=== PATIENT | female | born 2000 | race Caucasian/White ===

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

== ENCOUNTER 2022-11-09 03:03 | Inpatient (IN) | payer BC, OTHER ==
[2022-11-09] MEDS ORDERED: NICOTINE 21MG/24HR PATCH TRANSDERM STA (03:26)
[2022-11-09] MEDS ORDERED: LIDOCAINE 1% INJ 10MG/ML (20 ML MDV) SQ ONE (03:33)
[2022-11-09] MEDS ORDERED: TOPICAL SKIN ADHESIVE 1 EACH AMP TOPICAL ONE (04:08)
--- NOTE | 2022-11-09 04:12 | ED ---
General Adult HPI - General Source: EMS Mode of arrival: EMS <DarrenregCristel chiang - Last Filed: 11/10/22 01:29> - General Source: patient, RN notes reviewed, old records reviewed <Sachin Narvaez - Last Filed: 11/10/22 02:11> - General Chief complaint: Psychiatric Symptoms Stated complaint: Suicidal Time Seen by Provider: 11/09/22 03:14 - History of Present Illness Initial comments: Patient is a 22-year-old female presents with department for psychiatric evaluation. Performed self harm, cutting her arms, as well as her leg with a razor blade. This occurred shortly prior to arrival. Is up-to-date on tetanus. Endorses suicidal ideations. She states that she did this "to be taken seriously." Seems like she wants to be admitted. Denies any homicidal ideations, Tums complaints. Denies any visual or auditory hallucinations. His no other acute complaints at this time. (Sachin Narvaez) - Related Data Home Medications Medication Instructions Recorded Confirmed Unable To Assess [Unable to Assess] 05/22/17 05/22/17 Allergies Allergy/AdvReac Type Severity Reaction Status Date / Time No Known Allergies Allergy Verified 11/09/22 09:19 Review of Systems ROS Other: All systems not noted in ROS Statement are negative. <TuckerCristel - Last Filed: 11/10/22 01:29> ROS Other: All systems not noted in ROS Statement are negative. <Sachin Narvaez - Last Filed: 11/10/22 02:11> ROS Statement: Those systems with pertinent positive or pertinent negative responses have been documented in the HPI. Review of Systems: CONST: Denies fever EYES: Denies blurry vision ENT: Denies nasal congestion C/V: Denies Chest pain RESP: Denies shortness of breath GI: Denies abdominal pain : Denies dysuria SKIN: Endorses skin lacerations MSK: Denies joint pain. NEURO: Denies headache PSYCH: Denies homicidal ideations/plans/attempts. Denies visual or auditory hallucinations. He endorses suicidal ideation, attempt by cutting herself. (Sachin Narvaez) Past Medical History Past Medical History: No Reported History History of Any Multi-Drug Resistant Organisms: None Reported Past Surgical History: No Surgical Hx Reported Past Psychological History: Anxiety, Depression Past Alcohol Use History: None Reported Past Drug Use History: None Reported <Cristel Ceballos - Last Filed: 11/10/22 01:29> General Exam <Sachin Narvaez - Last Filed: 11/10/22 02:11> - General Exam Comments Initial Comments: General: Appears in no acute distress. HEAD: Normal with no signs of head trauma. EYES: PERRLA, EOMI, conjunctiva normal, no discharge. ENT: Hearing grossly intact, normal oropharynx. RESPIRATORY: Clear breath sounds bilaterally. No wheezes, rales, or rhonchi. C/V: Regular rate and rhythm. S1 and S2 auscultated, peripheral pulses 2+ and intact throughout ABD: Abd is soft, nontender, nondistended EXT: Normal range of motion, no obvious deformity SKIN: Patient has multiple skin lacerations located over the bilateral arms as well as leg. Self-inflicted. Fresh. Some will require stitches, as well as skin glue. Bleeding is controlled. NEURO: Alert and oriented 4. (Sachin Narvaez) Course Vital Signs 11/09/22 11/09/22 07:47 08:22 Temperature 97.9 F 97.3 F L Pulse Rate 100 Pulse Rate [ 82 Right Sitting] Respiratory 18 20 Rate Blood Pressure 119/71 Blood Pressure 150/70 [Left Arm Sitting] O2 Sat by Pulse 96 98 Oximetry Procedures - Laceration Laceration #1 Consent Obtained: verbal consent Indication: laceration Site: other (L forearm) Description: linear, stellate Depth: simple, single layer Anesthetic Used: lidocaine 1% Anesthesia Technique: local infiltration Amount (mls): 10 Pre-repair: wound explored, irrigated extensively Type of Sutures: vicryl Size of Sutures: 5-0 Number of Sutures: 3 Technique: simple, interrupted Complications: pain, bleeding, nerve injury Patient Tolerated Procedure: well, no complications Laceration #2 Indication: laceration Site: other Size (cm): 4 Description: linear Depth: simple, single layer Anesthetic Used: lidocaine 1% Anesthesia Technique: local infiltration, nerve block Amount (mls): 10 Pre-repair: wound explored, irrigated extensively Type of Sutures: vicryl Size of Sutures: 5-0 Number of Sutures: 3 Technique: simple, interrupted Complications: pain, bleeding, nerve injury Patient Tolerated Procedure: well, no complications Laceration #3 Consent Obtained: verbal consent Indication: laceration Site: other (left forearm ) Depth: simple, single layer Anesthetic Used: lidocaine 1% Anesthesia Technique: local infiltration Amount (mls): 10 Pre-repair: wound explored, irrigated extensively Type of Sutures: vicryl Size of Sutures: 5-0 Number of Sutures: 3 Technique: simple, interrupted Complications: pain, bleeding, nerve injury Patient Tolerated Procedure: well, no complications Laceration #4 Consent Obtained: verbal consent Indication: laceration Site: other (right thigh ) Description: linear Depth: simple, single layer Anesthetic Used: lidocaine 1% Anesthesia Technique: local infiltration Amount (mls): 10 Type of Sutures: vicryl Size of Sutures: 5-0 Number of Sutures: 2 Technique: simple, interrupted Complications: pain, bleeding, nerve injury Patient Tolerated Procedure: well, no complications Laceration #5 Consent Obtained: verbal consent Indication: laceration Site: other (left forearm ) Depth: simple, single layer Anesthetic Used: lidocaine 1% Anesthesia Technique: local infiltration Amount (mls): 10 Pre-repair: wound explored Type of Sutures: nylon, vicryl Size of Sutures: 5-0 Number of Sutures: 2 Technique: simple, interrupted Complications: pain, bleeding, nerve injury Patient Tolerated Procedure: well, no complications <Cristel Ceballos - Last Filed: 11/10/22 01:29> - Procedures Initial comment: Multiple superficial lacerations repaired. 13 sutures were placed in total to left forearm and right contreras. (Cristel Ceballos) Medical Decision Making <Sachin Narvaez - Last Filed: 11/10/22 02:11> - Medical Decision Making Was pt. sent in by a medical professional or institution (, PA, BLADDER CHANGER, urgent care, hospital, or skilled nursing...) When possible be specific @ -No Did you speak to anyone other than the patient for history (EMS, parent, family, police, friend...)? What history was obtained from this source @ -No Did you review nursing and triage notes (agree or disagree)? Why? @ -I reviewed and agree with nursing and triage notes Were old charts reviewed (outside hosp., previous admission, EMS record, old EKG, old radiological studies, urgent care reports/EKG's, skilled nursing records)? Report findings @ -No old charts were reviewed Differential Diagnosis (chest pain, altered mental status, abdominal pain women, abdominal pain men, vaginal bleeding, weakness, fever, dyspnea, syncope, headache, dizziness, GI bleed, back pain, seizure, CVA, palpatations, mental health, musculoskeletal)? @ -Differential Mental Health Depression, anxiety, bipolar, psychosis, schizophrenia, borderline personality, situational depression, adjustment disorder, behavioral disorder, brain tumor, malingering, substance abuse, encephalopathy, medication reaction, dementia, hypothyroidism, degenerative neurologic disorder, lupus.... This is not meant to be all-inclusive list EKG interpreted by me (3pts min.). @ -None done X-rays interpreted by me (1pt min.). @ -None done CT interpreted by me (1pt min.). @ -None done U/S interpreted by me (1pt. min.). @ -None done What testing was considered but not performed or refused? (CT, X-rays, U/S, labs)? Why? @ -None What meds were considered but not given or refused? Why? @ -None Did you discuss the management of the patient with other professionals (professionals i.e. , PA, BLADDER CHANGER, lab, RT, psych nurse, social security assessor, burner shaft, teacher, police officer crime prevention, lining caser)? Give summary @ -EPS notified of the consult. Was smoking cessation discussed for >3mins.? @ -No Was critical care preformed (if so, how long)? @ -No Were there social determinants of health that impacted care today? How? (Homelessness, low income, unemployed, alcoholism, drug addiction, t ransportation, low edu. Level, literacy, decrease access to med. care, penitentiary, rehab)? @ -No Was there de-escalation of care discussed even if they declined (Discuss DNR or withdrawal of care, Hospice)? DNR status @ -No What co-morbidities impacted this encounter? (DM, HTN, Smoking, COPD, CAD, Cancer, CVA, ARF, Chemo, Hep., AIDS, mental health diagnosis, sleep apnea, morbid obesity)? @ -None Was patient admitted / discharged? Hospital course, mention meds given and route, prescriptions, significant lab abnormalities, going to OR and other pertinent info. @ -Based on the patient's presentation and physical exam, presents with suicidal ideations, as well as self-harm. Patient is up-to-date on tetanus. She will require wound closure. BAT is 0.067. UDS is pending. Vital signs within acceptable limits. Suicide precautions, sitter ordered. Assisting mid-level provider Cristel attended to the patient's wounds. Patient is medically cleared for evaluation by psychiatry. EPS was notified of the consult. Disposition is been in psychiatric evaluation. EPS evaluated the patient and admitted the patient inpatient psychiatry. Undiagnosed new problem with uncertain prognosis? @ -No Drug Therapy requiring intensive monitoring for toxicity (Heparin, Nitro, Insulin, Cardizem)? @ -No Were any procedures done? @ -No Diagnosis/symptom? @ -Suicidal ideation, encounter for psychiatric evaluation, self-harm, lacerations Acute, or Chronic, or Acute on Chronic? @ -Acute Uncomplicated (without systemic symptoms) or Complicated (systemic symptoms)? @ -Complicated Side effects of treatment? @ -No Exacerbation, Progression, or Severe Exacerbation? @ -No Poses a threat to life or bodily function? How? (Chest pain, USA, MA, pneumonia, PE, COPD, DKA, ARF, appy, cholecystitis, CVA, Diverticulitis, Homicidal, Suicidal, threat to staff... and all critical care pts) @ -yes (Sachin Narvaez) - Lab Data Lab Results 11/09/22 11/09/22 11/09/22 Range/Units 06:32 06:38 06:38 Urine Color Light Red Urine Appearance Turbid H (Clear) Urine pH 5.5 (5.0-8.0) Ur Specific [place] 1.023 (1.001-1.035) Urine Protein Trace H (Negative) Urine Glucose (UA) Negative (Negative) Urine Ketones Negative (Negative) Urine Blood Negative (Negative) Urine Nitrite Negative (Negative) Urine Bilirubin Negative (Negative) Urine Urobilinogen <2.0 (<2.0) mg/dL Ur Leukocyte Esterase Negative (Negative) Urine RBC 9 H (0-5) /hpf Urine Bacteria Rare H (None) /hpf Urine Mucus Moderate H (None) /hpf Urine HCG, Qual (Not Detectd) Urine Opiates Screen Not Detected (NotDetected) Ur Oxycodone Screen Not Detected (NotDetected) Urine Methadone Screen Not Detected (NotDetected) Ur Propoxyphene Screen Not Detected (NotDetected) Ur Barbiturates Screen Not Detected (NotDetected) U Tricyclic Antidepress Not Detected (NotDetected) Ur Phencyclidine Scrn Not Detected (NotDetected) Ur Amphetamines Screen Not Detected (NotDetected) U Methamphetamines Scrn Not Detected (NotDetected) U Benzodiazepines Scrn Not Detected (NotDetected) Urine Cocaine Screen Not Detected (NotDetected) U Marijuana (THC) Screen Not Detected (NotDetected) Coronavirus (PCR) Not Detected (Not Detectd) 11/09/22 Range/Units 06:38 Urine Color Urine Appearance (Clear) Urine pH (5.0-8.0) Ur Specific [place] (1.001-1.035) Urine Protein (Negative) Urine Glucose (UA) (Negative) Urine Ketones (Negative) Urine Blood (Negative) Urine Nitrite (Negative) Urine Bilirubin (Negative) Urine Urobilinogen (<2.0) mg/dL Ur Leukocyte Esterase (Negative) Urine RBC (0-5) /hpf Urine Bacteria (None) /hpf Urine Mucus (None) /hpf Urine HCG, Qual Not Detected (Not Detectd) Urine Opiates Screen (NotDetected) Ur Oxycodone Screen (NotDetected) Urine Methadone Screen (NotDetected) Ur Propoxyphene Screen (NotDetected) Ur Barbiturates Screen (NotDetected) U Tricyclic Antidepress (NotDetected) Ur Phencyclidine Scrn (NotDetected) Ur Amphetamines Screen (NotDetected) U Methamphetamines Scrn (NotDetected) U Benzodiazepines Scrn (NotDetected) Urine Cocaine Screen (NotDetected) U Marijuana (THC) Screen (NotDetected) Coronavirus (PCR) (Not Detectd) Disposition <Cristel Ceballos - Last Filed: 11/10/22 01:29> <Sachin Narvaez - Last Filed: 11/10/22 02:11> Clinical Impression: Suicidal ideation, Self-harm, Encounter for psychiatric assessment, Multiple lacerations Disposition: TRANSFER TO PSYCH HOSP/UNIT Condition: Stable
[2022-11-09] MEDS ORDERED: HALOPERIDOL LACTATE 5 MG/ML 1 ML VIAL IM PRN (05:54)
[2022-11-09] MEDS ORDERED: haloperidoL 5 MG TAB PO PRN (05:54)
[2022-11-09] MEDS ORDERED: ACETAMINOPHEN TAB 325 MG TAB PO PRN (05:54)
[2022-11-09] MEDS ORDERED: MAG HYDROX/AL HYDROX/SIMETH 30 ML CUP PO PRN (05:54)
[2022-11-09] MEDS ORDERED: MAGNESIUM HYDROXIDE 2,400 MG/30 ML CUP PO PRN (05:54)
[2022-11-09] MEDS ORDERED: hydrOXYzine HCL 50 MG/ML 1 ML VIAL IM PRN (05:54)
[2022-11-09] MEDS ORDERED: LORazepam 2 MG/ML INJ IM PRN (05:54)
[2022-11-09] MEDS ORDERED: traZODone HCL 50 MG TAB PO PRN (05:54)
[2022-11-09] MEDS ORDERED: IBUPROFEN 600 MG TAB PO PRN (05:54)
[2022-11-09 07:00] LABS: Amphetamine Screen,Urine Not Detected (NotDetected); Barbiturate Screen,Urine Not Detected (NotDetected); Benzodiazepines Screen,Urine Not Detected (NotDetected); Cocaine Screen,Urine Not Detected (NotDetected); Methadone Screen, Urine Not Detected (NotDetected); Opiate Screen,Urine Not Detected (NotDetected); Oxycodone Screen, Urine Not Detected (NotDetected); Phencyclidine Screen,Urine Not Detected (NotDetected); Tricyclic Antidepressant,Urine Not Detected (NotDetected); Urn Cannabinoid Scrn Not Detected (NotDetected)
[2022-11-09] MEDS ORDERED: hydrOXYzine pamoate 25 MG CAP PO PRN (11:51)
--- NOTE | 2022-11-09 12:06 | P.HP ---
Psychiatric H&P - . H&P Date: 11/09/22 History & Physical: Allergies Allergy/AdvReac Type Severity Reaction Status Date / Time No Known Allergies Allergy Verified 11/09/22 09:19 Vital Signs Temp 97.3 F L 11/09/22 08:22 Pulse 82 11/09/22 08:22 Resp 20 11/09/22 08:22 BP 150/70 11/09/22 08:22 Pulse Ox 98 11/09/22 08:22 FiO2 Intake & Output 11/08/22 11/09/22 11/09/22 18:59 06:59 18:59 Weight 99.79 kg 115.1 kg Laboratory Last Values Urine Opiates Screen Not Detected (NotDetected) 11/09/22 06:38 Ur Oxycodone Screen Not Detected (NotDetected) 11/09/22 06:38 Urine Methadone Screen Not Detected (NotDetected) 11/09/22 06:38 Ur Propoxyphene Screen Not Detected (NotDetected) 11/09/22 06:38 Ur Barbiturates Screen Not Detected (NotDetected) 11/09/22 06:38 U Tricyclic Antidepress Not Detected (NotDetected) 11/09/22 06:38 Ur Phencyclidine Scrn Not Detected (NotDetected) 11/09/22 06:38 Ur Amphetamines Screen Not Detected (NotDetected) 11/09/22 06:38 U Methamphetamines Scrn Not Detected (NotDetected) 11/09/22 06:38 U Benzodiazepines Scrn Not Detected (NotDetected) 11/09/22 06:38 Urine Cocaine Screen Not Detected (NotDetected) 11/09/22 06:38 U Marijuana (THC) Screen Not Detected (NotDetected) 11/09/22 06:38 Coronavirus (PCR) Not Detected (Not Detectd) 11/09/22 06:32 11/09/22 11:53 Patient is a 22-year-old female presents with department for psychiatric evaluation. Performed self harm, cutting her arms, as well as her leg with a razor blade. This occurred shortly prior to arrival. Is up-to-date on tetanus. Endorses suicidal ideations. She states that she did this "to be taken seriously." Seems like she wants to be admitted. Denies any homicidal idea tions. Denies any visual or auditory hallucinations. Has no other acute complaints at this time. History of present illness: The patient has had a struggle with modes for a long period time. She has been diagnosed with borderline personality and agrees with that pattern she was raised by a father who could not be pleased and would cause a criticize her both for her efforts or if she gave up. But never explained what he was looking for. This led to a cyclic pattern of trying new things succeeding briefly and then having all fall apart and then trying new things again. She got into DBT recently and was hopeful but worried that it would simply change her service behaviors and not helped the underlying pain. In addition she lost her transportation and couldn't go anymore. She denies any manic or hypomanic episodes in the past. The closest thing to anything psychotic is that she has in her negative chatter that is her own mind. Such as suggesting that DBT wouldn't help because of a just work on the surface and not deal with underlying problems. This inner voice seems to be logical in her own voice just part of the borderline pattern. She has been tried on serotonin medicines including Effexor Prozac Lexapro and Zoloft none of which helped but did not make her manic either. She was also placed on Seroquel which did help her sleep but also caused it to be hard to lose weight. The thing that has helped the most due to the consistent anxiety and chatter in her head was Ativan but as she points out people are hesitant to use that long-term. the patient has cuts all up and down her arm she says that she's had a boyfriend for about 4 months and thought it was going well he struggles with panic attacks she struggles with up and down. However she felt that she needed a break and wanted to go back and live with her dad for a while. He became filled with panic and decided that she was bad for him so took all of her things and put them out on the porch and told her he didn't want her there anymore. This led to enormous sense of failure which she treated by cutting on herself she tried to quit but would keep going back to cutting on herself and to go the emergency room a couple times and couldn't seem to quit. She felt overwhelmed and decided to just find some way to kill her self but came to the hospital thinking if she could get admitted. She did both quit cutting on herself and find a way forward. She said 2 weeks ago if you talk to her she was happy and hopeful able to concentrate good energy able to enjoy. On mental status exam patient is alert oriented and cooperative. Serious affect. Gait and station are normal self-care is minimal but adequate no signs of any psychotic responses. She is not tearful not aggressive. Cooperative. Concentration was somewhat impaired she can only remember 2 of 3 objects after 3 minutes. She going name the last 3 presidents and 3 of the great [employer]. Interestingly she remembered [place] and superior but couldn't remember [place]. Subtracting 7 from 93 she got 86 and she can spell world backward cats and snakes both have sharp teeth and her animals and she ran out of ideas but she did this because her inner voice said those ideas were stupid so she did not share anymore. To abstract the proverb aggressive screen and outside offense sheath off her bed and said make the best of what you have. Assessment I do not see psychosis I do not see bipolar I do see a significant case of borderline which has led her to be temporarily danger to self or others if she were not in the hospital she would cut on herself feel hopeless and attempts suicide. We need to give her space to calm down get some medicines for dealing with anxiety and help her figure out how to get back into DBT and I think she will do okay. Plan: Since she has done well on Ativan may can take it all the time were going to try 200 4 times a day of gabapentin with when necessary of hydroxyzine and see if that cuts the anxiety enough for her to function.
[2022-11-09] MEDS: GABAPENTIN 100 MG CAP PO SCH ×3 (12:26→20:33)
[2022-11-09] MEDS: NICOTINE 14MG/24HR PATCH TRANSDERM SCH (12:28)
--- NOTE | 2022-11-09 14:07 | P.CONS ---
History of Present Illness - Reason for Consult Consult date: 11/09/22 - History of Present Illness Patient is a 22-year-old female with PMH of PCOS presents to [facility] for mental health concerns. She has been admitted to the mental health unit for further management of his symptoms. [facility] has been consulted for medical management of this patient. Patient reports bleeding from her self inflicted wounds on her right forearm. According to nursing staff, patient is pulling out her stitches which she received in the ED. She has no other complaints today. Pertinent positives and negatives as discussed in HPI, a complete review of systems was performed and all other systems are negative. General: non toxic, no distress, appears at stated age Derm: Multiple lacerations with different stages of healing over BL forearms. R laceration dorsal hand laterally bleeding. Head: atraumatic, normocephalic, symmetric Eyes: EOMI, no lid lag, anicteric sclera Cardiovascular: S1S2 reg, no murmur Lungs: CTA bilateral, no rhonchi, no rales , no accessory muscle use Abdominal: soft, nontender to palpation, no guarding, no appreciable organomegaly Ext: no gross muscle atrophy, no edema, no contractures Neuro: CN II-XI grossly intact, no focal neuro deficits Psych: Alert, oriented, appropriate affect Right forearm laceration PCOS Smoker Alcohol abuse Based on my assessment of this patient, this patient meets a moderate complexity level of care. Patient has a new diagnosis of nausea and vomiting with uncertain prognosis. His symptoms are also concerning for sleep apnea. Right forearm laceration: Local wound care. Steri strips. PCOS: Restart Metformin 500 mg PO QD. Smoker: Patient has been offered a nicotine patch. Alcohol abuse: She denies any withdrawal symptoms. Ativan 1 mg IM Q6H PRN for agitation ordered. I have reviewed the following sfdc consultant notes: Psychiatry note reviewed. I have reviewed the results of the following tests: UDS is negative. COVID-19 negative. I have ordered the following tests: Agree with CBC, CMP, urine hCG, hemoglobin A1c, lipid panel, TSH, urinalysis. I have discussed the care of this patient with the following independent historian: I have independently interpreted the following test below: I have discussed the management of this patient with the following physician: Past Medical History Past Medical History: No Reported History History of Any Multi-Drug Resistant Organisms: None Reported Past Surgical History: No Surgical Hx Reported Past Anesthesia/Blood Transfusion Reactions: No Reported Reaction Past Psychological History: Anxiety, Depression Smoking Status: Current every day smoker Past Alcohol Use History: None Reported Past Drug Use History: None Reported Medications and Allergies Home Medications Medication Instructions Recorded Confirmed Type Unable To Assess [Unable to Assess] 05/22/17 05/22/17 History Allergies Allergy/AdvReac Type Severity Reaction Status Date / Time No Known Allergies Allergy Verified 11/09/22 09:19 Physical Exam Vitals: Vital Signs Temp Pulse Pulse Resp BP BP Pulse Ox 11/09/22 08:22 97.3 F L 82 20 150/70 98 11/09/22 07:47 97.9 F 100 18 119/71 96 Intake and Output 11/08/22 11/09/22 11/09/22 22:59 06:59 14:59 Other: Weight 99.79 kg 115.1 kg
[2022-11-09] MEDS: LORazepam 1 MG TAB PO PRN ×2 (14:13→21:51)
[2022-11-09 19:00] LABS: Appearance,Urine Turbid (Clear); Bacteria,Urine Rare /hpf; Bilirubin,Urine Negative (Negative); Blood,Urine Negative (Negative); Color,Urine Light Red; Glucose,Urine (UA) Negative (Negative); Ketones,Urine Negative (Negative); Leukocyte Esterase,Urine Negative (Negative); Mucus,Urine Moderate /hpf; Nitrite,Urine Negative (Negative); PH, Urine 5.5 (5.0-8.0); Protein,Urine Trace (Negative); RBC,Urine 9 /hpf (0-5); Specific Gravity,Urine 1.023 (1.001-1.035); Urobilinogen,Urine <2.0 mg/dL (<2.0)
[2022-11-10 07:14] LABS: Basophils # (A) 0.1 k/uL (0-0.2); Basophils % (A) 1 %; Eosinophils # (A) 0.2 k/uL (0-0.7); Eosinophils % (A) 2 %; HCT 40.5 % (34.0-46.0); HGB 14.2 gm/dL (11.4-16.0); Lymphocytes # (A) 4.3 k/uL (1.0-4.8); Lymphocytes % (A) 38 %; MCH 32.2 pg (25.0-35.0); MCV 91.9 fL (80.0-100.0); Mean Platelet Volume 7.2; Monocytes # (A) 0.5 k/uL (0-1.0); Monocytes % (A) 5 %; Neutrophils # (A) 6.1 k/uL (1.3-7.7); Neutrophils % (A) 54 %; Platelet Count 290 k/uL (150-450); RBC 4.41 m/uL (3.80-5.40); RDW 12.4 % (11.5-15.5); WBC 11.3 k/uL (4.0-11.0)
[2022-11-10 07:32] LABS: ALT 25 U/L (4-34); AST 25 U/L (14-36); African American GFR (CKD) >90 (>60 ml/min/1.73 sqM); Albumin 4.1 g/dL (3.5-5.0); Alkaline Phosphatase 96 U/L (38-126); Anion Gap 10 mmol/L; Blood Urea Nitrogen 12 mg/dL (7-17); Calcium 9.3 mg/dL (8.4-10.2); Carbon Dioxide 24 mmol/L (22-30); Chloride 104 mmol/L (98-107); Glucose 89 mg/dL (74-99); Non-African American GFR(CKD) >90 (>60 ml/min/1.73 sqM); Potassium 3.8 mmol/L (3.5-5.1); Sodium 138 mmol/L (137-145); Total Bilirubin 1.5 mg/dL (0.2-1.3); Total Protein 7.3 g/dL (6.3-8.2)
[2022-11-10] MEDS: NICOTINE 14MG/24HR PATCH TRANSDERM SCH (09:01)
[2022-11-10] MEDS: GABAPENTIN 100 MG CAP PO SCH ×2 (09:02→14:10)
[2022-11-10] MEDS: metFORMIN 500 MG TAB PO SCH (09:02)
[2022-11-10 11:16] LABS: Chol/HDL Ratio 3.35 Ratio
[2022-11-10] MEDS: LITHIUM CARBONATE 300 MG CAP PO SCH ×2 (14:09→21:10)
[2022-11-10] MEDS: LORazepam 1 MG TAB PO PRN ×2 (14:09→21:14)
--- NOTE | 2022-11-10 14:11 | P.PN ---
Progress Note - Text Progress Note Date: 11/10/22 Interval History: Patient was seen laying in bed and was directable and agreeable to speak with clinical writer in the office. Patient claims that she cut herself severely before coming to the hospital. She had bandages over her forearms. She states that she feels impulsive and unregulated after breakups in the past. She states that she does have regret about it. Claims that her mood and anxiety are mildly improved since yesterday, we spoke about medication options and she was agreeable to try lithium. She states that her sleep is poor at nighttime. At this time patient denies any current suicidal or homical ideations, intent or plan. Patient denies any auditory, visual hallucinations and denies any paranoia or delusions. Patient denies any side effects from the medications and has been compliant with meds. Mental Status Exam: General Appearance: Patient appears to be mildly overweight, wearing glasses, dyed hair, stated age is alert, directable, and cooperative. Behavior: Patient is calmly seated without any agitated behavior. Superficial. Speech: Patient's speech is fluent and nonpressured. Mood/Affect: Mood is improving mildly, affect is congruent and constricted. Suicidality/Homicidality: Patient denies having any suicidal or homicidal ideation intent or plan. Perceptions: Patient denies any visual hallucinations and denies any auditory hallucinations Though content/process: There is no evidence of any delusional thought content and thought process is linear and goal-directed. Focused on discharge and minimizing. Memory and concentration: AOX3, grossly intact for the purposes of this session Judgment and insight: Poor, Improving mildly Assessment Bipolar depression Borderline personality disorder Alcohol abuse Nicotine dependence Plan: -Patient continues to meet criteria for inpatient psychiatric admission for symptom stabilization and safety. Patient has signed adult voluntary form and medication consent and was placed in patient's chart. -Medications: Start lithium 300 mg twice a day for mood stabilization/suicidal thoughts, Seroquel 25 mg daily at bedtime for mood stabilization/insomnia, Vistaril when necessary for anxiety. -ciwa protocol with prn ativan for etoh w/d sx -When necessary Ativan and Haldol for agitation/aggression. -NRT - nicotine patch -SW on board for discharge planning. Encouraged the patient to participate in milieu. patient was encouraged to start DBT therapy upon discharge, likely discharge back home in 2-3 days.
[2022-11-10] MEDS: QUEtiapine 25 MG TAB PO SCH (21:10)
[2022-11-11] MEDS: LITHIUM CARBONATE 300 MG CAP PO SCH ×2 (09:58→20:13)
[2022-11-11] MEDS: NICOTINE 14MG/24HR PATCH TRANSDERM SCH (09:58)
[2022-11-11] MEDS: LORazepam 1 MG TAB PO PRN ×2 (10:05→18:07)
[2022-11-11] MEDS: metFORMIN 500 MG TAB PO SCH (12:54)
--- NOTE | 2022-11-11 13:02 | P.PN ---
Progress Note - Text Progress Note Date: 11/11/22 Interval History: Patient was seen laying in bed and was directable and agreeable to speak with chief underwriter. Patient claims that she was feeling tired this morning, showed little interest in going to group today however states that she went to blow about 3 of them yesterday. She was encouraged to go to more groups at this time. She briefly spoke about wanting to be discharged. She claims that she is doing a bit better and feels like her mood is more stable. She states that she was able sleep poorly last night has a fair appetite at this time. Continues to mainly isolate on the unit. At this time patient denies any current suicidal or homical ideations, intent or plan. Patient denies any auditory, visual hallucinations and denies any paranoia or delusions. Patient denies any side effects from the medications and has been compliant with meds. Mental Status Exam: General Appearance: Patient appears to be mildly overweight, wearing glasses, dyed hair, stated age is alert, directable, and cooperative. Behavior: Patient is calmly seated without any agitated behavior. Superficial, improving mildly Speech: Patient's speech is fluent and nonpressured. Mood/Affect: Mood is improving mildly, affect is congruent and constricted. Suicidality/Homicidality: Patient denies having any suicidal or homicidal ideation intent or plan. Perceptions: Patient denies any visual hallucinations and denies any auditory hallucinations Though content/process: There is no evidence of any delusional thought content and thought process is linear and goal-directed. [place] Memory and concentration: AOX3, grossly intact for the purposes of this session Judgment and insight: Poor, Improving mildly Assessment Bipolar depression Borderline personality disorder Alcohol abuse Nicotine dependence Plan: -Patient continues to meet criteria for inpatient psychiatric admission for symptom stabilization and safety. Patient has signed adult voluntary form and medication consent and was placed in patient's chart. -Medications: lithium 300 mg twice a day for mood stabilization/suicidal thought s, Seroquel 25 mg daily at bedtime for mood stabilization/insomnia, Vistaril when necessary for anxiety. -ciwa protocol with prn ativan for etoh w/d sx -When necessary Ativan and Haldol for agitation/aggression. -NRT - nicotine patch -SW on board for discharge planning. Encouraged the patient to participate in milieu. patient was encouraged to start DBT therapy upon discharge, likely discharge back home in 1-2 days.
[2022-11-11] MEDS: NICOTINE 21MG/24HR PATCH TRANSDERM SCH (13:40)
[2022-11-11 18:12] VITALS: RESP 18
[2022-11-11] MEDS: QUEtiapine 25 MG TAB PO SCH (20:13)
[2022-11-11] MEDS: hydrOXYzine pamoate 25 MG CAP PO PRN (22:29)
[2022-11-12] MEDS: metFORMIN 500 MG TAB PO SCH (07:55)
[2022-11-12] MEDS: LITHIUM CARBONATE 300 MG CAP PO SCH ×2 (07:56→20:37)
[2022-11-12] MEDS: NICOTINE 21MG/24HR PATCH TRANSDERM SCH (07:56)
--- NOTE | 2022-11-12 08:53 | P.PN ---
Progress Note - Text Progress Note Date: 11/12/22 Interval History: Patient was seen in group this morning and was directable and agreeable to speak with technical document writer. Patient states that she feels she has more energy today. She claims that she has been going to more groups and trying to participate on the unit. She remains fairly concrete and somewhat focused on discharge. She states that she has been reflecting back on what she has done and states that her mood is more stable on medications now. She has more questions about the dosing and also she was agreeable to have her level checked tomorrow morning prior to discharge. She claims that last night she slept better has a fair appetite at this time. At this time patient denies any current suicidal or homical ideations, intent or plan. Patient denies any auditory, visual hallucinations and denies any paranoia or delusions. Patient denies any side effects from the medications and has been compliant with meds. Mental Status Exam: General Appearance: Patient appears to be mildly overweight, wearing glasses, dyed hair, stated age is alert, directable, and cooperative. Behavior: Patient is calmly seated without any agitated behavior, improving mildly Speech: Patient's speech is fluent and nonpressured. Mood/Affect: Mood is improving mildly, affect is congruent and constricted. Suicidality/Homicidality: Patient denies having any suicidal or homicidal ideation intent or plan. Perceptions: Patient denies any visual hallucinations and denies any auditory hallucinations Though content/process: There is no evidence of any delusional thought content and thought process is linear and goal-directed. [place] Memory and concentration: AOX3, grossly intact for the purposes of this session Judgment and insight: Improving mildly Assessment Bipolar depression Borderline personality disorder Alcohol abuse Nicotine dependence Plan: -Patient continues to meet criteria for inpatient psychiatric admission for symptom stabilization and safety. Patient has signed adult voluntary form and medication consent and was placed in patient's chart. -Medications: lithium 300 mg twice a day for mood stabilization/suicidal thoughts, Seroquel 25 mg daily at bedtime for mood stabilization/insomnia, Vistaril when necessary for anxiety. will check lithium tomorrow morning prior to discharge -ciwa protocol with prn ativan for etoh w/d sx -When necessary Ativan and Haldol for agitation/aggression. -NRT - nicotine patch -SW on board for discharge planning. Encouraged the patient to participate in milieu. patient was encouraged to start DBT therapy upon discharge, likely discharge tomorrow to [facility]. check lithium level tomorrow morning prior to d/c
[2022-11-12] MEDS: hydrOXYzine pamoate 25 MG CAP PO PRN ×2 (12:57→21:56)
[2022-11-12] MEDS: LORazepam 0.5 MG TAB PO PRN ×2 (13:19→20:37)
[2022-11-12] MEDS: QUEtiapine 25 MG TAB PO SCH (20:37)
[2022-11-13 06:51] VITALS: BP 96/53; PULSE 75; TEMP 97.9
[2022-11-13] MEDS: NICOTINE 21MG/24HR PATCH TRANSDERM SCH (09:23)
[2022-11-13] MEDS: LORazepam 0.5 MG TAB PO PRN (09:23)
[2022-11-13] MEDS: metFORMIN 500 MG TAB PO SCH (09:23)
--- NOTE | 2022-11-13 10:04 | P.DS ---
Providers Date of admission: 11/09/22 08:19 Expected date of discharge: 11/13/22 Attending physician: Kirby Orozco MD Consults: 11/09/22 05:54 Consult Physician Routine Consulting Provider: [facility] Consult Reason/Comments: h and p Do you want consulting provider notified?: Yes, Notify in am Primary care physician: Harvinder Moore Tiffani - Discharge Diagnosis(es) (1) Bipolar disorder with depression Current Visit: Yes Status: Acute Priority: High (2) Borderline personality disorder Current Visit: Yes Status: Acute Priority: High (3) Alcohol abuse Current Visit: Yes Status: Acute Priority: Medium (4) Nicotine dependence Current Visit: Yes Status: Acute Priority: Low Hospital Course: Admission HPI: Admission note was completed by Dr. Valdes "Patient is a 22-year-old female presents with department for psychiatric evaluation. Performed self harm, cutting her arms, as well as her leg with a razor blade. This occurred shortly prior to arrival. Is up-to-date on tetanus. Endorses suicidal ideations. She states that she did this "to be taken seriously." Seems like she wants to be admitted. Denies any homicidal ideations. Denies any visual or auditory hallucinations. Has no other acute complaints at this time. The patient has had a struggle with modes for a long period time. She has been diagnosed with borderline personality and agrees with that pattern she was raised by a father who could not be pleased and would cause a criticize her both for her efforts or if she gave up. But never explained what he was looking for. This led to a cyclic pattern of trying new things succeeding briefly and then having all fall apart and then trying new things again. She got into DBT recently and was hopeful but worried that it would simply change her service behaviors and not helped the underlying pain. In addition she lost her transportation and couldn't go anymore. She denies any manic or hypomanic episodes in the past. The closest thing to anything psychotic is that she has in her negative chatter that is her own mind. Such as suggesting that DBT wouldn't help because of a just work on the surface and not deal with underlying problems. This inner voice seems to be logical in her own voice just part of the borderline pattern. She has been tried on serotonin medicines including Effexor Prozac Lexapro and Zoloft none of which helped but did not make her manic either. She was also placed on Seroquel which did help her sleep but also caused it to be hard to lose weight. The thing that has helped the most due to the consistent anxiety and chatter in her head was Ativan but as she points out people are hesitant to use that long-term. the patient has cuts all up and down her arm she says that she's had a boyfriend for about 4 months and thought it was going well he struggles with panic attacks she struggles with up and down. However she felt that she needed a break and wanted to go back and live with her dad for a while. He became filled with panic and decided that she was bad for him so took all of her things and put them out on the porch and told her he didn't want her there anymore. This led to enormous sense of failure which she treated by cutting on herself she tried to quit but would keep going back to cutting on herself and to go the emergency room a couple times and couldn't seem to quit. She felt overwhelmed and decided to just find some way to kill her self but came to the hospital thinking if she could get admitted. She did both quit cutting on herself and find a way forward. She said 2 weeks ago if you talk to her she was happy and hopeful able to concentrate good energy able to enjoy." Hospital course: Upon admission to the unit patient was directable and agreeable to commence treatment and signed adult voluntary form. Patient mainly kept herself initially however with treatment she gradually improved and got along well with other patients on the unit and followed unit protocol. Patient was compliant with the medications and denied any side effects throughout hospital course. Patient was started on lithium 300 mg twice a day for mood stabilization/suicidal thoughts, Seroquel 50 mg daily at bedtime for insomnia/mood stabilization. Patient spoke of her stressors and engaged in therapy both group and individual. Patient was also seen by medical team for history and physical exam. Throughout the course of the hospitalization patient gradually improved with regards to mood, anxiety, suicidal thoughts, impulsivity, sleep and returned back to their baseline level of functioning. On the day of discharge patient denied any suicidal or homicidal ideations intent or plan denied any auditory or visual hallucinations. Patient endorsed wanting to live for her health and her future. The patient denied any access to guns or weapons. Patient denied any paranoia and did not endorse any delusions. Patient does have a significant history of substance abuse and was counseled on abstaining from all substances including alcohol and marijuana. Patient was offered however declined inpatient substance-abuse rehab. Patient was also counseled on the medications and need for regular compliance and was encouraged to follow-up with their outpatient appointment for mental health and also for primary care. Prior to discharge a family meeting will be arranged by social work professor to answer any questions and ensure safety upon discharge. workers' compensation commissioner also to ensure no guns or weapons or in the home and it's a safe environment, father to pick patient up today. Mental status exam: General Appearance: Patient appears to be mildly overweight, wearing glasses, stated age is alert, pleasant, and cooperative. Patient is in no acute distress and has improved hygiene and grooming Behavior: Patient is calmly seated without any agitated behavior. Speech: Patient's speech is fluent and nonpressured. Mood/Affect: Patient reports their mood is "good", affect is congruent Suicidality/Homicidality: Patient denies having any suicidal or homicidal ideation intent or plan. Perceptions: Patient denies any auditory or visual hallucinations. Though content/process: There is no evidence of any delusional thought content and thought process is linear and goal-directed. Memory and concentration: AOX3, grossly intact for the purposes of this session. Can spell "WORLD" backwards correctly. Judgment and insight: chronically impulsive, however has improved with guarded prognosis Impression: Bipolar disorder depression Borderline personality disorder Alcohol abuse Nicotine dependence Plan: -Continue with discharge today as patient has improved and stabilized psychiatrically and is not currently an imminent threat to herself and/or others. Patient will remain at chronically elevated risk for harm to self and/or others due to her impulsivity and substance abuse. -Continue medications: Doffing 300 mg twice a day for mood stabilization/suicidal thoughts, Seroquel 50 mg daily at bedtime for mood stabilization/insomnia. -Patient was counseled on the need for medication compliance and appropriate follow-up at mental health and also primary care for medical issues. Patient verbalized understanding and agreed. -Social work to arrange for and conduct family meeting to ensure safety upon discharge and answer any questions/concerns. Social work also to arrange for patients follow up appointments for psychiatric care along with follow up with primary care provider. Patient was encouraged to seek DBT therapy in either outpatient setting or at a program, patient states that she and her family were looking at different programs in outside states for DBT. -Patient counseled on abstaining from recreational drugs and marijuana and alcohol. Was informed/educated on the adverse effects on their physical and mental health. Patient verbally agreed and understood. -Patient was instructed to return to the hospital or seek immediate medical care if their psychiatric or medical symptoms do worsen or reoccur. Allergies Allergy/AdvReac Type Severity Reaction Status Date / Time No Known Allergies Allergy Verified 11/09/22 09:19 Laboratory Results WBC 11.3 k/uL (4.0-11.0) H 11/10/22 07:00 RBC 4.41 m/uL (3.80-5.40) 11/10/22 07:00 Hgb 14.2 gm/dL (11.4-16.0) 11/10/22 07:00 Hct 40.5 % (34.0-46.0) 11/10/22 07:00 MCV 91.9 fL (80.0-100.0) 11/10/22 07:00 MCH 32.2 pg (25.0-35.0) 11/10/22 07:00 MCHC 35.0 g/dL (31.0-37.0) 11/10/22 07:00 RDW 12.4 % (11.5-15.5) 11/10/22 07:00 Plt Count 290 k/uL (150-450) 11/10/22 07:00 MPV 7.2 11/10/22 07:00 Neutrophils % 54 % 11/10/22 07:00 Lymphocytes % 38 % 11/10/22 07:00 Monocytes % 5 % 11/10/22 07:00 Eosinophils % 2 % 11/10/22 07:00 Basophils % 1 % 11/10/22 07:00 Neutrophils # 6.1 k/uL (1.3-7.7) 11/10/22 07:00 Lymphocytes # 4.3 k/uL (1.0-4.8) 11/10/22 07:00 Monocytes # 0.5 k/uL (0-1.0) 11/10/22 07:00 Eosinophils # 0.2 k/uL (0-0.7) 11/10/22 07:00 Basophils # 0.1 k/uL (0-0.2) 11/10/22 07:00 Sodium 138 mmol/L (137-145) 11/10/22 07:01 Potassium 3.8 mmol/L (3.5-5.1) 11/10/22 07:01 Chloride 104 mmol/L (98-107) 11/10/22 07:01 Carbon Dioxide 24 mmol/L (22-30) 11/10/22 07:01 Anion Gap 10 mmol/L 11/10/22 07:01 BUN 12 mg/dL (7-17) 11/10/22 07:01 Creatinine 0.69 mg/dL (0.52-1.04) 11/10/22 07:01 Est GFR (CKD-EPI)AfAm >90 (>60 ml/min/1.73 sqM) 11/10/22 07:01 Est GFR (CKD-EPI)NonAf >90 (>60 ml/min/1.73 sqM) 11/10/22 07:01 Glucose 89 mg/dL (74-99) 11/10/22 07:[address] Glu mg/dL 128 mg/dL 11/10/22 06:57 Hemoglobin A1c 6.1 % (<=6.0) H 11/10/22 06:57 Calcium 9.3 mg/dL (8.4-10.2) 11/10/22 07:01 Total Bilirubin 1.5 mg/dL (0.2-1.3) H 11/10/22 07:01 AST 25 U/L (14-36) 11/10/22 07:01 ALT 25 U/L (4-34) 11/10/22 07:01 Alkaline Phosphatase 96 U/L (38-126) 11/10/22 07:01 Total Protein 7.3 g/dL (6.3-8.2) 11/10/22 07:01 Albumin 4.1 g/dL (3.5-5.0) 11/10/22 07:01 Triglycerides 137.00 mg/dL (0.00-149.00) 11/10/22 07:01 Cholesterol 156.00 mg/dL (0.00-200.00) 11/10/22 07:01 LDL Cholesterol, Calc 82.0 mg/dL (0.0-131.0) 11/10/22 07:01 VLDL Cholesterol, Calc 27.40 mg/dL (5.00-40.00) 11/10/22 07:01 HDL Cholesterol 46.60 mg/dL (40.00-60.00) 11/10/22 07:01 Cholesterol/HDL Ratio 3.35 Ratio 11/10/22 07:01 TSH 1.120 mIU/L (0.465-4.680) 11/10/22 07:01 Urine Color Light Red 11/09/22 06:38 Urine Appearance Turbid (Clear) H 11/09/22 06:38 Urine pH 5.5 (5.0-8.0) 11/09/22 06:38 Ur Specific [place] 1.023 (1.001-1.035) 11/09/22 06:38 Urine Protein Trace (Negative) H 11/09/22 06:38 Urine Glucose (UA) Negative (Negative) 11/09/22 06:38 Urine Ketones Negative (Negative) 11/09/22 06:38 Urine Blood Negative (Negative) 11/09/22 06:38 Urine Nitrite Negative (Negative) 11/09/22 06:38 Urine Bilirubin Negative (Negative) 11/09/22 06:38 Urine Urobilinogen <2.0 mg/dL (<2.0) 11/09/22 06:38 Ur Leukocyte Esterase Negative (Negative) 11/09/22 06:38 Urine RBC 9 /hpf (0-5) H 11/09/22 06:38 Urine Bacteria Rare /hpf (None) H 11/09/22 06:38 Urine Mucus Moderate /hpf (None) H 11/09/22 06:38 Urine HCG, Qual Not Detected (Not Detectd) 11/09/22 06:38 Urine Opiates Screen Not Detected (NotDetected) 11/09/22 06:38 Ur Oxycodone Screen Not Detected (NotDetected) 11/09/22 06:38 Urine Methadone Screen Not Detected (NotDetected) 11/09/22 06:38 Ur Propoxyphene Screen Not Detected (NotDetected) 11/09/22 06:38 Ur Barbiturates Screen Not Detected (NotDetected) 11/09/22 06:38 U Tricyclic Antidepress Not Detected (NotDetected) 11/09/22 06:38 Ur Phencyclidine Scrn Not Detected (NotDetected) 11/09/22 06:38 Ur Amphetamines Screen Not Detected (NotDetected) 11/09/22 06:38 U Methamphetamines Scrn Not Detected (NotDetected) 11/09/22 06:38 U Benzodiazepines Scrn Not Detected (NotDetected) 11/09/22 06:38 Urine Cocaine Screen Not Detected (NotDetected) 11/09/22 06:38 U Marijuana (THC) Screen Not Detected (NotDetected) 11/09/22 06:38 Coronavirus (PCR) Not Detected (Not Detectd) 11/09/22 06:32 Vital Signs Temp 97.9 F 11/13/22 06:50 Pulse 75 11/13/22 06:50 Resp 18 11/13/22 06:50 BP 96/53 11/13/22 06:50 Pulse Ox 98 11/13/22 06:50 FiO2 Patient Condition at Discharge: Stable Plan - Discharge Summary New Discharge Prescriptions: New Nicotine 21Mg/24Hr Patch [Habitrol] 1 patch TRANSDERM DAILY 14 Days #14 patch Doffing Carbonate 300 mg PO BID 14 Days #28 cap metFORMIN HCL [Glucophage] 500 mg PO W/BRKFST 14 Days #28 tab QUEtiapine [SEROquel] 50 mg PO HS 14 Days #14 tab hydrOXYzine pamoate [Vistaril] 50 mg PO DAILY PRN 30 Days #60 cap PRN Reason: Anxiety Discharge Medication List Doffing Carbonate 300 mg PO BID 14 Days #28 cap 11/13/22 [Rx] Nicotine 21Mg/24Hr Patch [Habitrol] 1 patch TRANSDERM DAILY 14 Days #14 patch 11/13/22 [Rx] QUEtiapine [SEROquel] 50 mg PO HS 14 Days #14 tab 11/13/22 [Rx] hydrOXYzine pamoate [Vistaril] 50 mg PO DAILY PRN 30 Days #60 cap 11/13/22 [Rx] metFORMIN HCL [Glucophage] 500 mg PO W/BRKFST 14 Days #28 tab 11/13/22 [Rx] Follow up Appointment(s)/Referral(s): [facility] [Outside] - 11/18/22 12:30 pm (with Ginger) Harvinder Nixon MD [Primary Care Provider] - 1-2 days Activity/Diet/Wound Care/Special Instructions: Avoid the use of street drugs and alcohol. Take all medications as prescribed. When you are in need of refills on your medications, please contact your medical provider and/or outpatient psychiatrist/provider to have this done. Please go to your scheduled outpatient appointment for aftercare treatment. If symptoms return or become worse, call the crisis line at and/or go to the nearest emergency room for evaluation. National Suicide Hotline 988. Discharge Disposition: HOME SELF-CARE
[2022-11-13] MEDS: LITHIUM CARBONATE 300 MG CAP PO SCH (10:54)
== END 2022-11-13 14:13 | disposition home or self-care (01) | DRG 885 ==
LOC: EC 03:03 → 3MHU 08:19
PROVIDERS: ADMIT Psychiatry & Neurology Psychiatry; ATTEND Psychiatry & Neurology Psychiatry
DX: F31.30 Bipolar disorder, current episode depressed, mild or moderate severity, unspecified (principal); F17.200 Nicotine dependence, unspecified, uncomplicated; F60.3 Borderline personality disorder; G47.00 Insomnia, unspecified; X78.8XXA Intentional self-harm by other sharp object, initial encounter; Z79.899 Other long term (current) drug therapy; Z20.822 Contact with and (suspected) exposure to COVID-19
CPT/HCPCS: 12004; 80053; 80061; 80178; 80306; 81001; 81025; 82075; 83036; 84443; 85025; 87635; 99285

== ENCOUNTER 2023-04-05 00:32 | Emergency (ER) | payer BC ==
[2023-04-05] MEDS ORDERED: LIDOCAINE 1% INJ 10MG/ML (20 ML MDV) SQ ONE (01:26)
[2023-04-05] MEDS ORDERED: DIPH,PERTUS(ACELL)TETVAC-LF 0.5 ML VIAL IM ONE (01:26)
[2023-04-05] MEDS ORDERED: diazePAM 2 MG TAB PO STA (01:50)
[2023-04-05] MEDS ORDERED: NICOTINE 7MG/24HR PATCH TRANSDERM STA (03:39)
[2023-04-05] MEDS ORDERED: IBUPROFEN 600 MG TAB PO STA (03:43)
--- NOTE | 2023-04-05 03:54 | ED ---
Psych HPI <Brando Mckay - Last Filed: 04/05/23 13:08> - General Source: EMS Mode of arrival: EMS <Jean-Pierre Carrington - Last Filed: 04/05/23 16:25> - General Chief Complaint: Psychiatric Symptoms Stated Complaint: Mental health Time Seen by Provider: 04/05/23 01:16 - History of Present Illness Initial Comments: 22-year-old female presenting for mental health evaluation. Patient was petitioned report Christina GAMEZ. Patient presents with multiple cuts to the forearms and lower extremities. Patient states that this is her response to stress, she states that she has not cut herself "in a while". she admits to several recent stressful life events. She denies any suicidal or homicidal ideation. She states that she took 6 mg of Xanax and 2 Percocet 10-325 prior to arrival. Denies any other drugs or alcohol. (Jean-Pierre Carrington) - Related Data Home Medications Medication Instructions Recorded Confirmed No Known Home Medications 04/05/23 04/05/23 Allergies Allergy/AdvReac Type Severity Reaction Status Date / Time No Known Allergies Allergy Verified 04/05/23 14:17 Review of Systems ROS Other: All systems not noted in ROS Statement are negative. <Brando Mckay - Last Filed: 04/05/23 13:08> ROS Other: All systems not noted in ROS Statement are negative. <Jean-Pierre Carrington - Last Filed: 04/05/23 16:25> ROS Statement: Those systems with pertinent positive or pertinent negative responses have been documented in the HPI. Past Medical History Past Medical History: No Reported History History of Any Multi-Drug Resistant Organisms: None Reported Past Surgical History: No Surgical Hx Reported Past Anesthesia/Blood Transfusion Reactions: No Reported Reaction Past Psychological History: Anxiety, Bipolar, Depression Smoking Status: Current every day smoker, Vaper Past Alcohol Use History: None Reported Past Drug Use History: None Reported <Jean-Pierre Carrington - Last Filed: 04/05/23 16:25> General Exam Limitations: no limitations General appearance: alert, in no apparent distress Head exam: Present: atraumatic, normocephalic Eye exam: Present: normal appearance Neck exam: Present: normal inspection Respiratory exam: Absent: respiratory distress Cardiovascular Exam: Present: regular rate Neurological exam: Present: alert, oriented X3 Psychiatric exam: Present: depressed Skin exam: Present: other (Multiple self-harm arboleda to bilateral forearms and lower legs) <Jean-Pierre Carrington - Last Filed: 04/05/23 16:25> Course Vital Signs 04/05/23 04/05/23 00:56 10:45 Temperature 98 F 97.6 F Pulse Rate 86 72 Respiratory 18 16 Rate Blood Pressure 138/86 116/82 O2 Sat by Pulse 97 98 Oximetry Procedures - Laceration Laceration #1 Consent Obtained: verbal consent Indication: laceration Site: upper extremity (Right forearm) Size (cm): 5 Description: linear Depth: simple, single layer Anesthetic Used: lidocaine 1%, without epi Anesthesia Technique: local infiltration Pre-repair: wound explored, irrigated extensively Type of Sutures: nylon Size of Sutures: 4-0 Number of Sutures: 4 Technique: simple, interrupted Patient Tolerated Procedure: well <Jean-Pierre Carrington - Last Filed: 04/05/23 16:25> Medical Decision Making <Brando Mckay - Last Filed: 04/05/23 13:08> - Lab Data Result diagrams: 04/05/23 12:56 04/05/23 12:56 <Jean-Pierre Carrington - Last Filed: 04/05/23 16:25> - Medical Decision Making Was patient admitted / discharged? Hospital course, mention meds given and route, prescriptions, significant lab abnormalities, going to OR and other pertinent info. @ -Patient was evaluated by EPS they determined the patient needed to be admitted. I did a clinical certification the patient after I spoke with her. Undiagnosed new problem with uncertain prognosis? @ -[No] Drug Therapy requiring intensive monitoring for toxicity (Heparin, Nitro, Insulin, Cardizem)? @ -[No] Were any procedures done? @ -[No] Diagnosis/symptom? @ -Self-harm Acute, or Chronic, or Acute on Chronic? @ -Acute Uncomplicated (without systemic symptoms) or Complicated (systemic symptoms)? @ -Complicated Side effects of treatment? @ -[No] Exacerbation, Progression, or Severe Exacerbation? @ -[No] Poses a threat to life or bodily function? How? (Chest pain, [place], [place], pneumonia, PE, COPD, DKA, ARF, appy, cholecystitis, CVA, Diverticulitis, Homicidal, Suicidal, threat to staff... and all critical care pts) @ -[No] (Brando Mckay) Was pt. sent in by a medical professional or institution (, [facility], INSTRUMENT REPAIR SPECIALIST, urgent care, hospital, or shelter...) When possible be secfic @ -[No] Did you speak to anyone other than the patient for history (EMS, parent, family, police, friend...)? What history was obtained from this ouce @ -[No] Did you review nursing and triage notes (agree or disagree)? Why? @ -[I reviewed and agree with nursing and riage notes] Were old charts reviewed (outside hosp., previous admission, EMS record, old EKG, old radiological studies, urgent care reports/EKG's, shelter records)? Report fidings @ -[No old charts wre reviewed] Differential Diagnosis (chest pain, altered mental status, abdominal pain women, abdominal pain men, vaginal bleeding, weakness, fever, dyspnea, syncope, headache, dizziness, GI bleed, back pain, seizure, CVA, palpatations, mental health, musculoskeletal)? @ -Differential Mental Health Depression, anxiety, bipolar, psychosis, schizophrenia, borderline personality, situational depression, adjustment disorder, behavioral disorder, brain tumor, malingering, substance abuse, encephalopathy, medication reaction, dementia, hypothyroidism, degenerative neurologic disorder, lupus.... This is not meant to be all-inclusive list EKG interpreted by me (3ptsmin.). @ -[As above] X-rays interpreted by me (1ptmin.). @ -[None done] CT interpreted by me (1ptmin.). @ -[None done] U/S interpreted by me (1pt.min.). @ -[None done] What testing was considered but not performed or refused? (CT, X-rays, U/S, labs? Wh? @ -[None] What meds were considered but not given or refuse? Wh? @ -[None] Did you discuss the management of the patient with other professionals (professionals i.e. [facility] Shay, INSTRUMENT REPAIR SPECIALIST, lab, RT, psych nurse, clinical social work therapist, rat poisoner, teacher, penal officer, case making machine operator)? Give umary @ -[No] Was smoking cessation discussed for >mis.? @ -[No] Was critical care preformed (if so, howlog)? @ -[No] Were there social determinants of health that impacted care today? How? (Homelessness, low income, unemployed, alcoholism, drug addiction, transportation, low edu. Level, literacy, decrease access to med. care, custodial, ehb)? @ -[No] Was there de-escalation of care discussed even if they declined (Discuss DNR or withdrawal of care, Hospice)? DNRsttus @ -[No] What co-morbidities impacted this encounter? (DM, HTN, Smoking, COPD, CAD, Cancer, CVA, ARF, Chemo, Hep., AIDS, mental health diagnosis, sleep apnea, morbid obsity? @ -[None] Was patient admitted / discharged? Hospital course, mention meds given and route, prescriptions, significant lab abnormalities, going to OR and other pertinent info. @ -22-year-old female brought in by PD for mental health evaluation. On exam she has multiple self-harm works the bilateral forearms and lower extremities. One of these lacerations is repaired, see procedure note for details. Tetanus is updated. Patient is awaiting evaluation by EPS and is signed out to my attending. Undiagnosed new problem with uncertain pronois? @ -[No] Drug Therapy requiring intensive monitoring for toxicity (Heparin, Nitro, Insulin, Carizm)? @ -[No] Were any procedures done? @ Laceration repair (Jean-Pierre Carrington) - Lab Data Lab Results 04/05/23 04/05/23 04/05/23 Range/Units 10:56 10:56 12:56 WBC 10.5 (4.0-11.0) k/uL RBC 5.01 (3.80-5.40) m/uL Hgb 15.7 (11.4-16.0) gm/dL Hct 45.2 (34.0-46.0) % MCV 90.1 (80.0-100.0) fL MCH 31.2 (25.0-35.0) pg MCHC 34.6 (31.0-37.0) g/dL RDW 13.1 (11.5-15.5) % Plt Count 321 (150-450) k/uL MPV 7.4 Neutrophils % 65 % Lymphocytes % 25 % Monocytes % 8 % Eosinophils % 1 % Basophils % 1 % Neutrophils # 6.7 (1.3-7.7) k/uL Lymphocytes # 2.6 (1.0-4.8) k/uL Monocytes # 0.8 (0-1.0) k/uL Eosinophils # 0.1 (0-0.7) k/uL Basophils # 0.1 (0-0.2) k/uL Sodium (137-145) mmol/L Potassium (3.5-5.1) mmol/L Chloride (98-107) mmol/L Carbon Dioxide (22-30) mmol/L Anion Gap mmol/L BUN (7-17) mg/dL Creatinine (0.52-1.04) mg/dL Est GFR (CKD-EPI)AfAm (>60 ml/min/1.73 sqM) Est GFR (CKD-EPI)NonAf (>60 ml/min/1.73 sqM) Glucose (74-99) mg/dL Calcium (8.4-10.2) mg/dL Urine Color Yellow Urine Appearance Cloudy H (Clear) Urine pH 5.5 (5.0-8.0) Ur Specific [place] 1.017 (1.001-1.035) Urine Protein Trace H (Negative) Urine Glucose (UA) Negative (Negative) Urine Ketones Trace H (Negative) Urine Blood Small H (Negative) Urine Nitrite Positive H (Negative) Urine Bilirubin Negative (Negative) Urine Urobilinogen <2.0 (<2.0) mg/dL Ur Leukocyte Esterase Large H (Negative) Urine RBC 8 H (0-5) /hpf Urine WBC >182 H (0-5) /hpf Urine WBC Clumps Many H (None) /hpf Urine Bacteria Rare H (None) /hpf Urine Mucus Moderate H (None) /hpf Urine HCG, Qual Not Detected (Not Detectd) Urine Opiates Screen Not Detected (NotDetected) Ur Oxycodone Screen Not Detected (NotDetected) Urine Methadone Screen Not Detected (NotDetected) Ur Barbiturates Screen Not Detected (NotDetected) U Tricyclic Antidepress Not Detected (NotDetected) Ur Phencyclidine Scrn Not Detected (NotDetected) Ur Amphetamines Screen Not Detected (NotDetected) U Methamphetamines Scrn Not Detected (NotDetected) U Benzodiazepines Scrn Detected H (NotDetected) Urine Cocaine Screen Not Detected (NotDetected) U Marijuana (THC) Screen Not Detected (NotDetected) Influenza Type A (PCR) (Not Detectd) Influenza Type B (PCR) (Not Detectd) RSV (PCR) (Not Detectd) SARS-CoV-2 (PCR) (Not Detectd) 04/05/23 04/05/23 Range/Units 12:56 14:04 WBC (4.0-11.0) k/uL RBC (3.80-5.40) m/uL Hgb (11.4-16.0) gm/dL Hct (34.0-46.0) % MCV (80.0-100.0) fL MCH (25.0-35.0) pg MCHC (31.0-37.0) g/dL RDW (11.5-15.5) % Plt Count (150-450) k/uL MPV Neutrophils % % Lymphocytes % % Monocytes % % Eosinophils % % Basophils % % Neutrophils # (1.3-7.7) k/uL Lymphocytes # (1.0-4.8) k/uL Monocytes # (0-1.0) k/uL Eosinophils # (0-0.7) k/uL Basophils # (0-0.2) k/uL Sodium 141 (137-145) mmol/L Potassium 3.7 (3.5-5.1) mmol/L Chloride 105 (98-107) mmol/L Carbon Dioxide 25 (22-30) mmol/L Anion Gap 11 mmol/L BUN 11 (7-17) mg/dL Creatinine 0.77 (0.52-1.04) mg/dL Est GFR (CKD-EPI)AfAm >90 (>60 ml/min/1.73 sqM) Est GFR (CKD-EPI)NonAf >90 (>60 ml/min/1.73 sqM) Glucose 96 (74-99) mg/dL Calcium 9.6 (8.4-10.2) mg/dL Urine Color Urine Appearance (Clear) Urine pH (5.0-8.0) Ur Specific [place] (1.001-1.035) Urine Protein (Negative) Urine Glucose (UA) (Negative) Urine Ketones (Negative) Urine Blood (Negative) Urine Nitrite (Negative) Urine Bilirubin (Negative) Urine Urobilinogen (<2.0) mg/dL Ur Leukocyte Esterase (Negative) Urine RBC (0-5) /hpf Urine WBC (0-5) /hpf Urine WBC Clumps (None) /hpf Urine Bacteria (None) /hpf Urine Mucus (None) /hpf Urine HCG, Qual (Not Detectd) Urine Opiates Screen (NotDetected) Ur Oxycodone Screen (NotDetected) Urine Methadone Screen (NotDetected) Ur Barbiturates Screen (NotDetected) U Tricyclic Antidepress (NotDetected) Ur Phencyclidine Scrn (NotDetected) Ur Amphetamines Screen (NotDetected) U Methamphetamines Scrn (NotDetected) U Benzodiazepines Scrn (NotDetected) Urine Cocaine Screen (NotDetected) U Marijuana (THC) Screen (NotDetected) Influenza Type A (PCR) Not Detected (Not Detectd) Influenza Type B (PCR) Not Detected (Not Detectd) RSV (PCR) Not Detected (Not Detectd) SARS-CoV-2 (PCR) Not Detected (Not Detectd) Disposition Time of Disposition: 13:14 <Brando Mckay - Last Filed: 04/05/23 13:08> <Jean-Pierre Carrington - Last Filed: 04/05/23 16:25> Clinical Impression: Self-harming behavior, Bipolar disorder Disposition: ADMITTED IP TO THIS HOSP Referrals: Harvinder Nixon MD [Primary Care Provider] - 1-2 days
[2023-04-05 11:21] LABS: Appearance,Urine Cloudy (Clear); Bacteria,Urine Rare /hpf; Bilirubin,Urine Negative (Negative); Blood,Urine Small (Negative); Color,Urine Yellow; Glucose,Urine (UA) Negative (Negative); Ketones,Urine Trace (Negative); Leukocyte Esterase,Urine Large (Negative); Mucus,Urine Moderate /hpf; Nitrite,Urine Positive (Negative); PH, Urine 5.5 (5.0-8.0); Protein,Urine Trace (Negative); RBC,Urine 8 /hpf (0-5); Specific Gravity,Urine 1.017 (1.001-1.035); Urobilinogen,Urine <2.0 mg/dL (<2.0); WBC,Urine >182 /hpf (0-5)
[2023-04-05 11:29] LABS: Amphetamine Screen,Urine Not Detected (NotDetected); Barbiturate Screen,Urine Not Detected (NotDetected); Benzodiazepines Screen,Urine Detected (NotDetected); Cocaine Screen,Urine Not Detected (NotDetected); Methadone Screen, Urine Not Detected (NotDetected); Opiate Screen,Urine Not Detected (NotDetected); Oxycodone Screen, Urine Not Detected (NotDetected); Phencyclidine Screen,Urine Not Detected (NotDetected); Tricyclic Antidepressant,Urine Not Detected (NotDetected); Urn Cannabinoid Scrn Not Detected (NotDetected)
[2023-04-05] MEDS ORDERED: BACITRACIN OINT 1 EACH PACKET TOPICAL ONE (12:39)
[2023-04-05 13:29] LABS: African American GFR (CKD) >90 (>60 ml/min/1.73 sqM); Anion Gap 11 mmol/L; Blood Urea Nitrogen 11 mg/dL (7-17); Calcium 9.6 mg/dL (8.4-10.2); Carbon Dioxide 25 mmol/L (22-30); Chloride 105 mmol/L (98-107); Glucose 96 mg/dL (74-99); Non-African American GFR(CKD) >90 (>60 ml/min/1.73 sqM); Potassium 3.7 mmol/L (3.5-5.1); Sodium 141 mmol/L (137-145)
[2023-04-05 13:46] LABS: Basophils # (A) 0.1 k/uL (0-0.2); Basophils % (A) 1 %; Eosinophils # (A) 0.1 k/uL (0-0.7); Eosinophils % (A) 1 %; HCT 45.2 % (34.0-46.0); HGB 15.7 gm/dL (11.4-16.0); Lymphocytes # (A) 2.6 k/uL (1.0-4.8); Lymphocytes % (A) 25 %; MCH 31.2 pg (25.0-35.0); MCHC 34.6 g/dL (31.0-37.0); MCV 90.1 fL (80.0-100.0); Mean Platelet Volume 7.4; Monocytes # (A) 0.8 k/uL (0-1.0); Monocytes % (A) 8 %; Neutrophils # (A) 6.7 k/uL (1.3-7.7); Neutrophils % (A) 65 %; Platelet Count 321 k/uL (150-450); RBC 5.01 m/uL (3.80-5.40); RDW 13.1 % (11.5-15.5); WBC 10.5 k/uL (4.0-11.0)
[2023-04-05] MEDS ORDERED: ZIPRASIDONE 20 MG VIAL IM STA (13:49)
[2023-04-06 04:59] VITALS: RESP 18; TEMP 97.5
[2023-04-06] MEDS ORDERED: LORazepam 1 MG TAB PO STA (05:10)
[2023-04-06] MEDS ORDERED: NICOTINE 7MG/24HR PATCH TRANSDERM STA (05:20)
[2023-04-06] MEDS ORDERED: SULFAMETHOX-TMP 800-160MG 1 EACH TAB PO STA (12:26)
[2023-04-06 15:03] VITALS: BP 128/74; PULSE 78
== END 2023-04-06 19:41 | disposition other institution (70) ==
LOC: EC 00:32
DX: R45.88 Nonsuicidal self-harm (principal); F31.9 Bipolar disorder, unspecified; F17.290 Nicotine dependence, other tobacco product, uncomplicated; Z86.59 Personal history of other mental and behavioral disorders; Z20.822 Contact with and (suspected) exposure to COVID-19
CPT/HCPCS: 82075; 36415; 80048; 85025; 81001; 81025; 80306; 87636; 12002; 99285; 96372; S4990; J2001; J3486